=== PATIENT | female | born 1985 | race Caucasian/White ===

== ENCOUNTER 2021-07-26 16:41 | Emergency (ER) | payer SELFPAY ==
[~2021-07-26] VITALS: Ht 157.5 cm; Wt 59.0 kg
[~2021-07-26 16:41] MED LIST: BUPR-46 PO; FERR-43 PO; IBUP-779 PO; IRON-15 PO; MULT-1146 PO; TRAZ-252 PO
[2021-07-26 22:35] VITALS: BP 118/76
[2021-07-27] MEDS ORDERED: DEX6 MT (00:18)
== END 2021-07-27 01:22 | disposition home or self-care (01) ==
LOC: ER 16:41
DX: U07.1 COVID-19 (principal); F32.A Depression, unspecified; Z98.890 Other specified postprocedural states
CPT/HCPCS: 87426; 99283

== ENCOUNTER 2022-07-28 08:07 | Emergency (ER) | payer SELFPAY ==
[~2022-07-28] VITALS: Ht 160 cm; Wt 69.0 kg
[~2022-07-28 08:07] MED LIST changes: +DEX6 MT
[2022-07-28 08:21] VITALS: BP 136/84
== END 2022-07-28 09:02 | disposition home or self-care (01) ==
LOC: ER 08:07
DX: Z48.02 Encounter for removal of sutures (principal)
CPT/HCPCS: 99281; Z7610

== ENCOUNTER 2022-07-30 22:12 | Emergency (ER) | payer SELFPAY ==
[~2022-07-30] VITALS: Ht 160 cm; Wt 72.6 kg
[2022-07-30 22:20] VITALS: BP 131/84
== END 2022-07-30 23:32 | disposition home or self-care (01) ==
LOC: ER 22:12
DX: Z00.00 Encounter for general adult medical examination without abnormal findings (principal); F12.10 Cannabis abuse, uncomplicated; Z98.890 Other specified postprocedural states; Z79.899 Other long term (current) drug therapy
CPT/HCPCS: 99283